=== PATIENT | female | born 1955 | race Caucasian/White ===

== ENCOUNTER 2024-03-12 11:08 | Emergency (ER) | payer MEDICARE, OTHER ==
[~2024-03-12] VITALS: Ht 162.6 cm; Wt 53.7 kg
[2024-03-12] MEDS ORDERED: LIPITOR40 MG PO (13:58)
[2024-03-12] MEDS ORDERED: NIACIN ER500 MG PO (13:58)
[2024-03-12] MEDS ORDERED: REPATHA SU140 MG/1 M SQ (13:58)
[2024-03-12] MEDS ORDERED: ZETIA10 MG PO (13:58)
[2024-03-12] MEDS ORDERED: SODIUM CHLORIDE 0.9% 1,000 ML IV ONE (14:00)
[2024-03-12 14:09] LABS: BASOPHILS 0.2 % (0-2); EOSINOPHILS 0.2 % (0-6); HEMATOCRIT 26.1 % (35.0-50.0); HEMOGLOBIN 8.9 g/dL (12.0-18.0); LYMPHOCYTES 14.3 % (24-44); MCHC 34.1 g/dl (30-36); MCV 99.6 fl (81-99); MONOCYTES 3.9 % (0-12); NEUTROPHILS 81.4 % (39-80); PLATELET COUNT 252 K/uL (140-440); RBC 2.62 M/ul (4.3-5.7); RDW 13.8 (10.5-15.0)
[2024-03-12 14:25] LABS: ALBUMIN 3.4 g/dL (3.4-5.0); ALBUMIN/GLOBULIN RATIO 1.26 (1.1-2.4); ANION GAP 13.8 (7-21); BILIRUBIN, TOTAL 0.3 ng/dL (0.2-1.0); BUN/CREATININE RATIO 47.14 (6.0-28.6); CREATININE, SERUM 0.7 mg/dL (0.55-1.02); POTASSIUM 3.8 mmol/L (3.5-5.1); PROTEIN, TOTAL 6.1 g/dL (6.4-8.2)
[2024-03-12] MEDS ORDERED: PANTOPRAZOLE SODIUM 40 MG TABEC PO ONE (16:00)
[2024-03-12 16:16] VITALS: BP 111/72
== END 2024-03-12 16:25 | disposition home or self-care (01) ==
LOC: ED 11:08
PROVIDERS: Emergency Medicine
DX: D64.9 Anemia, unspecified (principal); K92.2 Gastrointestinal hemorrhage, unspecified; Z88.2 Allergy status to sulfonamides; Z79.899 Other long term (current) drug therapy
CPT/HCPCS: 36415; 72070; 80053; 84484; 85025; 96360; 99284-25; A9270; J7030